=== PATIENT | female | born 1990 | race African-American/Black ===

== ENCOUNTER 2021-11-24 21:19 | Observation (INO) | payer MEDICAID ==
[~2021-11-24] VITALS: Ht 167.6 cm; Wt 99.8 kg
[~2021-11-24 21:19] MED LIST: ALBU4TAB6 INH; AMOX-424 MT; ARIP30TA2 PO; TRAZ300T11 PO
[2021-11-24] MEDS ORDERED: LACTATED RINGERS 1,000 ML IV NR ×2 (23:15)
[2021-11-24 23:33] LABS: CLARITY URINE CLEAR (CLEAR); COLOR URINE YELLOW (YELLOW); KETONES URINE NEGATIVE (NEGATIVE); LEUKOCYTE ESTERASE URINE NEGATIVE (NEGATIVE); NITRITE URINE NEGATIVE (NEGATIVE); OCCULT BLOOD URINE NEGATIVE (NEGATIVE); PH URINE 6.5 (4.5-8.0); PROTEIN URINE NEGATIVE (NEGATIVE); SPECIFIC GRAVITY URINE 1.004 (1.005-1.030); UROBILINOGEN URINE 0.2 E.U./dL (0.2-1.0)
[2021-11-24 23:36] LABS: BASOPHILS % 0.2 % (0.0-2.0); EOSINOPHILS % 1.2 % (0.0-5.0); HEMATOCRIT. 30.6 % (36.0-48.0); HEMOGLOBIN. 10.2 g/dL (12.0-16.0); LYMPHOCYTES % 25.4 % (20.0-50.0); MEAN CORPUSCULAR HEMOGLOBIN 29.4 pg (28.0-32.0); MEAN CORPUSCULAR VOLUME 88.1 fL (81.0-99.0); MEAN PLATELET VOLUME 9.1 fl (7.4-10.4); MONOCYTES % 5.8 % (2.0-8.0); NEUTROPHILS % 67.4 % (40.0-76.0); PLATELET 256 x1000/uL (130-400); RED BLOOD CELL COUNT 3.47 mill/uL (4.2-5.4); RED CELL DISTRIBUTION WIDTH 13.6 % (11.6-14.6)
[2021-11-24 23:42] LABS: CHLORIDE 104 mEq/L (98-107)
[2021-11-24 23:43] LABS: D-DIMER 0.37 mg/L FEU (<0.50); PARTIAL THROMBOPLASTIN TIME 29.8 sec (23.4-31.0); PROTHROMBIN TIME 10.5 sec (9.6-11.0)
[2021-11-24 23:51] LABS: *AMPHETAMINES SCREEN URINE NEGATIVE (NEGATIVE); *BARBITURATES SCREEN URINE NEGATIVE (NEGATIVE); *BENZODIAZEPINES SCREEN URINE NEGATIVE (NEGATIVE); *COCAINE SCREEN URINE NEGATIVE (NEGATIVE); METHADONE URINE SCREEN NEGATIVE (NEGATIVE); OPIATES URINE SCREEN NEGATIVE (NEGATIVE); PHENCYCLIDINE URINE SCREEN NEGATIVE (NEGATIVE)
[2021-11-25] MEDS ORDERED: LACTATED RINGERS 1,000 ML IV SCH
[2021-11-25 00:02] LABS: CANNABINOID URINE SCREEN PRESUMTIVE POSITIVE (NEGATIVE)
[2021-11-25] MEDS ORDERED: ACETAMINOPHEN 325MG TABLET PO ONE (01:15)
[2021-11-25] MEDS ORDERED: NITR100C PO (11:55)
[2021-12-01 04:07] LABS: CANNABINOID CONFIRMATION URINE Positive (.)
== END 2021-11-25 03:28 | disposition home or self-care (01) ==
LOC: 8 EST LDRP 21:19
PROVIDERS: ADMIT Obstetrics & Gynecology; ATTEND Obstetrics & Gynecology
DX: O26.893 Other specified pregnancy related conditions, third trimester (principal); Z20.822 Contact with and (suspected) exposure to COVID-19; R10.2 Pelvic and perineal pain; O99.891 Other specified diseases and conditions complicating pregnancy; M54.9 Dorsalgia, unspecified; O99.343 Other mental disorders complicating pregnancy, third trimester; F20.9 Schizophrenia, unspecified; O34.219 Maternal care for unspecified type scar from previous cesarean delivery; Z3A.36 36 weeks gestation of pregnancy; Z79.899 Other long term (current) drug therapy
CPT/HCPCS: 36415; 76805; 76818; 80053; 80305; 80349; 81003; 84550; 85025; 85379; 85384; 85610; 85730; 86850; 86900; 86901; 96360; G0378; 99281; 99284; G0379

== ENCOUNTER 2021-11-25 03:38 | Emergency (ER) | payer MEDICAID ==
[~2021-11-25] VITALS: Ht 162.6 cm; Wt 120.0 kg
[2021-11-25 05:02] LABS: BASOPHILS % 0.4 % (0.0-2.0); EOSINOPHILS % 2.8 % (0.0-5.0); HEMATOCRIT. 30.4 % (36.0-48.0); HEMOGLOBIN. 10.7 g/dL (12.0-16.0); LYMPHOCYTES % 29.4 % (20.0-50.0); MEAN CORPUSCULAR HEMOGLOBIN 30.7 pg (28.0-32.0); MEAN PLATELET VOLUME 8.4 fl (7.4-10.4); MONOCYTES % 9.2 % (2.0-8.0); NEUTROPHILS % 58.2 % (40.0-76.0); PLATELET 245 x1000/uL (130-400); RED CELL DISTRIBUTION WIDTH 13.7 % (11.6-14.6)
[2021-11-25 05:07] LABS: CHLORIDE 106 mEq/L (98-107)
[2021-11-25 05:17] LABS: ETHANOL BLOOD < 10 mg/dL
[2021-11-25 05:31] LABS: CLARITY URINE CLOUDY (CLEAR); COLOR URINE YELLOW (YELLOW); KETONES URINE TRACE (NEGATIVE); LEUKOCYTE ESTERASE URINE 2+ (NEGATIVE); NITRITE URINE NEGATIVE (NEGATIVE); OCCULT BLOOD URINE NEGATIVE (NEGATIVE); PROTEIN URINE TRACE (NEGATIVE); SPECIFIC GRAVITY URINE 1.033 (1.005-1.030)
[2021-11-25 05:47] LABS: *AMPHETAMINES SCREEN URINE NEGATIVE (NEGATIVE); *BARBITURATES SCREEN URINE NEGATIVE (NEGATIVE); *BENZODIAZEPINES SCREEN URINE NEGATIVE (NEGATIVE); *COCAINE SCREEN URINE NEGATIVE (NEGATIVE); METHADONE URINE SCREEN NEGATIVE (NEGATIVE); OPIATES URINE SCREEN NEGATIVE (NEGATIVE); PHENCYCLIDINE URINE SCREEN NEGATIVE (NEGATIVE)
[2021-11-25 06:04] LABS: CANNABINOID URINE SCREEN PRESUMTIVE POSITIVE (NEGATIVE)
[2021-11-25] MEDS ORDERED: NITR100C PO (11:55)
[2021-11-25 12:26] VITALS: BP 134/80
== END 2021-11-25 12:45 | disposition home or self-care (01) ==
LOC: ER 03:38
DX: O23.43 Unspecified infection of urinary tract in pregnancy, third trimester (principal); N39.0 Urinary tract infection, site not specified; O9A.513 Psychological abuse complicating pregnancy, third trimester; Z63.0 Problems in relationship with spouse or partner; O99.323 Drug use complicating pregnancy, third trimester; F12.10 Cannabis abuse, uncomplicated; O99.343 Other mental disorders complicating pregnancy, third trimester; F31.9 Bipolar disorder, unspecified; Z3A.34 34 weeks gestation of pregnancy; Z20.822 Contact with and (suspected) exposure to COVID-19
CPT/HCPCS: 36415; 80053; 80305; 80307; 80320; 80329; 81003; 81025; 85025; 87086; 99285; C9803; U0003; U0005; A4315; G0480

== ENCOUNTER 2021-12-06 19:11 | Observation (INO) | payer MEDICAID ==
[~2021-12-06] VITALS: Ht 162.6 cm; Wt 119.7 kg
[~2021-12-06 19:11] MED LIST changes: -ALBU4TAB6 INH; -AMOX-424 MT; -ARIP30TA2 PO; +NITR100C PO; -TRAZ300T11 PO
== END 2021-12-06 22:25 | disposition home or self-care (01) ==
LOC: 8 EST LDRP 19:11
PROVIDERS: ADMIT Obstetrics & Gynecology; ATTEND Obstetrics & Gynecology
DX: O21.2 Late vomiting of pregnancy (principal); O26.893 Other specified pregnancy related conditions, third trimester; R10.9 Unspecified abdominal pain; Z3A.39 39 weeks gestation of pregnancy
CPT/HCPCS: 59025; 76815; 76818; G0378

== ENCOUNTER 2021-12-27 00:08 | Inpatient (IN) | payer MEDICAID ==
[~2021-12-27] VITALS: Ht 162.6 cm; Wt 115.2 kg
[2021-12-27] MEDS ORDERED: ABILIFY (00:20)
[2021-12-27] MEDS ORDERED: QUETIAPINE (00:20)
[2021-12-27] MEDS ORDERED: LITHIUM (01:12)
[2021-12-27] MEDS ORDERED: MISOPROSTOL 100MCG TABLET VG SCH (03:30)
[2021-12-27] MEDS ORDERED: RHO(D) IMMUNE GLOBULIN 300 MCG/SYR IM ONE (03:30)
[2021-12-27] MEDS ORDERED: LACTATED RINGERS 1,000 ML IV SCH (03:30)
[2021-12-27] MEDS ORDERED: CARBOPROST TROMETHAMINE 250 MCG/ML AMPUL IM PRN (03:30)
[2021-12-27] MEDS ORDERED: OXYTOCIN 30 UNITS/500ML NS PMX 500 ML IV SCH (03:30)
[2021-12-27] MEDS ORDERED: METHYLERGONOVINE MALEATE 0.2 MG/ML IM PRN (03:30)
[2021-12-27] MEDS ORDERED: NALOXONE HCL 0.4 MG/ML 1ML VIAL IM PRN (03:30)
[2021-12-27] MEDS ORDERED: AMPICILLIN 2GM in NS 100ML 100 ML IV NR (04:00)
[2021-12-27 06:16] LABS: CLARITY URINE CLEAR (CLEAR); COLOR URINE YELLOW (YELLOW); KETONES URINE NEGATIVE (NEGATIVE); LEUKOCYTE ESTERASE URINE NEGATIVE (NEGATIVE); NITRITE URINE NEGATIVE (NEGATIVE); OCCULT BLOOD URINE NEGATIVE (NEGATIVE); PROTEIN URINE NEGATIVE (NEGATIVE); SPECIFIC GRAVITY URINE 1.032 (1.005-1.030); UROBILINOGEN URINE 0.2 E.U./dL (0.2-1.0)
[2021-12-27 06:29] LABS: BASOPHILS % 0.6 % (0.0-2.0); EOSINOPHILS % 2.1 % (0.0-5.0); HEMATOCRIT. 32.4 % (36.0-48.0); HEMOGLOBIN. 11.1 g/dL (12.0-16.0); MEAN CORPUSCULAR VOLUME 87.9 fL (81.0-99.0); MEAN PLATELET VOLUME 8.9 fl (7.4-10.4); MONOCYTES % 7.5 % (2.0-8.0); NEUTROPHILS % 69.8 % (40.0-76.0); PLATELET 277 x1000/uL (130-400); RED BLOOD CELL COUNT 3.69 mill/uL (4.2-5.4); RED CELL DISTRIBUTION WIDTH 13.8 % (11.6-14.6)
[2021-12-27 06:32] LABS: *AMPHETAMINES SCREEN URINE NEGATIVE (NEGATIVE); *BARBITURATES SCREEN URINE NEGATIVE (NEGATIVE); *BENZODIAZEPINES SCREEN URINE NEGATIVE (NEGATIVE); *COCAINE SCREEN URINE NEGATIVE (NEGATIVE); METHADONE URINE SCREEN NEGATIVE (NEGATIVE); OPIATES URINE SCREEN NEGATIVE (NEGATIVE); PHENCYCLIDINE URINE SCREEN NEGATIVE (NEGATIVE)
[2021-12-27] MEDS ORDERED: FENTANYL CITRATE/PF 50MCG/ML 2ML VIAL ONE (06:34)
[2021-12-27 06:35] LABS: CHLORIDE 106 mEq/L (98-107)
[2021-12-27 06:35] LABS: CANNABINOID URINE SCREEN PRESUMTIVE POSITIVE (NEGATIVE)
[2021-12-27] MEDS ORDERED: PHENYLEPHRINE HCL 10 MG/ML 1ML (IV VIAL) IV ONE (06:35)
[2021-12-27] MEDS ORDERED: ONDANSETRON HCL 4MG/2ML INJ ONE (06:35)
[2021-12-27] MEDS ORDERED: EPHEDRINE SULFATE 50MG/ML VIAL ONE (06:35)
[2021-12-27] MEDS ORDERED: OXYTOCIN 10 UNITS/ML 1ML ONE (06:35)
[2021-12-27] MEDS ORDERED: CEFAZOLIN SODIUM 1000MG/VIAL ONE (06:35)
[2021-12-27 06:40] LABS: INR 0.9; PARTIAL THROMBOPLASTIN TIME 30.4 sec (23.4-31.0)
[2021-12-27] MEDS ORDERED: MIDAZOLAM HCL 2 MG/2 ML VIAL ONE ×3 (06:41→07:36)
[2021-12-27 07:10] LABS: HEPATITIS B SURFACE ANTIGEN NEGATIVE
[2021-12-27] MEDS ORDERED: LIDOCAINE HCL 1% 20ML VIAL (Pyxis) INJ ONE (07:36)
[2021-12-27] MEDS ORDERED: BUPIVACAINE HCL/DEXTROSE/PF 0.75% 2ML AMP INJ ONE (07:36)
[2021-12-27] MEDS ORDERED: DIPHENHYDRAMINE 50MG/ML VIAL ONE (07:41)
[2021-12-27] MEDS ORDERED: KETOROLAC 60MG/2ML VIAL IM ONE (07:46)
[2021-12-27] MEDS ORDERED: KETOROLAC 30MG/ML VIAL IV SCH (08:00)
[2021-12-27] MEDS ORDERED: DIPHENHYDRAMINE 50MG/ML VIAL IV PRN (08:00)
[2021-12-27] MEDS ORDERED: NALOXONE HCL 0.4 MG/ML 1ML VIAL IV PRN (08:00)
[2021-12-27] MEDS ORDERED: BUTORPHANOL TARTRATE 2 MG/ML VIAL IV PRN (08:00)
[2021-12-27] MEDS ORDERED: IBUPROFEN 400MG TABLET PO PRN (08:30)
[2021-12-27] MEDS ORDERED: BISACODYL 10MG SUPP PR PRN (08:30)
[2021-12-27] MEDS ORDERED: HYDROMORPHONE HCL/PF 2MG/ML CPJ IM PRN (08:30)
[2021-12-27] MEDS ORDERED: RHO(D) IMMUNE GLOBULIN 300 MCG/SYR IM PRN (08:30)
[2021-12-27] MEDS ORDERED: NALOXONE HCL 0.4MG/ML VIAL IV PRN (09:30)
[2021-12-27] MEDS ORDERED: AMPICILLIN 1,000 MG in SODIUM CHLORIDE 0.9% 50 ML IV SCH (10:00)
[2021-12-27 11:55] VITALS: BP 103/63
[2021-12-27 16:00] VITALS: BP 113/64
[2021-12-27] MEDS: IBUPROFEN 800MG TABLET PO PRN ×2 (16:04→22:54)
[2021-12-27] MEDS: OLANZAPINE 5MG TABLET PO SCH (19:42)
[2021-12-27 22:00] VITALS: BP 117/64
[2021-12-28 05:16] VITALS: BP 124/65
[2021-12-28 07:21] LABS: BASOPHILS % 0.1 % (0.0-2.0); EOSINOPHILS % 2.3 % (0.0-5.0); HEMATOCRIT. 32.1 % (36.0-48.0); HEMOGLOBIN. 10.8 g/dL (12.0-16.0); LYMPHOCYTES % 21.7 % (20.0-50.0); MEAN CORPUSCULAR HEMOGLOBIN 29.9 pg (28.0-32.0); MEAN CORPUSCULAR VOLUME 88.8 fL (81.0-99.0); MEAN PLATELET VOLUME 9.1 fl (7.4-10.4); MONOCYTES % 7.9 % (2.0-8.0); PLATELET 280 x1000/uL (130-400); RED BLOOD CELL COUNT 3.62 mill/uL (4.2-5.4); RED CELL DISTRIBUTION WIDTH 13.8 % (11.6-14.6)
[2021-12-28 08:00] VITALS: BP 138/81
[2021-12-28] MEDS: PRENATAL VIT/FE FUMARATE/FA TABLET PO SCH ×2 (09:00→09:18)
[2021-12-28] MEDS: OLANZAPINE 5MG TABLET PO SCH (09:18)
[2021-12-28] MEDS: FERROUS SULFATE 325MG TABLET PO SCH ×2 (09:18→12:30)
[2021-12-28 12:24] VITALS: BP_SYST 16
[2021-12-28] MEDS: IBUPROFEN 800MG TABLET PO PRN ×2 (15:09→20:55)
[2021-12-28 16:19] VITALS: BP 132/81
[2021-12-28] MEDS: ARIPIPRAZOLE 5MG TABLET PO SCH (18:03)
[2021-12-28 19:15] VITALS: BP 119/68
[2021-12-28] MEDS: LITHIUM CARBONATE 150 MG CAPSULE PO SCH (20:54)
[2021-12-28] MEDS: QUETIAPINE FUMARATE 50MG TABLET PO SCH (20:55)
[2021-12-29 03:00] VITALS: BP 125/62
[2021-12-29] MEDS: IBUPROFEN 800MG TABLET PO PRN ×4 (03:00→20:45)
[2021-12-29 08:00] VITALS: BP 138/82
[2021-12-29] MEDS: FERROUS SULFATE 325MG TABLET PO SCH ×3 (08:32→17:30)
[2021-12-29] MEDS: PRENATAL VIT/FE FUMARATE/FA TABLET PO SCH (08:33)
[2021-12-29] MEDS: ARIPIPRAZOLE 5MG TABLET PO SCH (08:33)
[2021-12-29] MEDS: QUETIAPINE FUMARATE 50MG TABLET PO SCH ×2 (10:05→20:44)
[2021-12-29 16:00] VITALS: BP 103/56
[2021-12-29 20:00] VITALS: BP 126/86
[2021-12-29] MEDS: LITHIUM CARBONATE 150 MG CAPSULE PO SCH (20:44)
[2021-12-30] MEDS: IBUPROFEN 800MG TABLET PO PRN ×2 (01:50→08:40)
[2021-12-30 03:51] VITALS: BP 117/86
[2021-12-30] MEDS ORDERED: ABIL5 PO (07:45)
[2021-12-30] MEDS ORDERED: QUET50TA PO (07:45)
[2021-12-30] MEDS ORDERED: FERR-63 PO (07:45)
[2021-12-30] MEDS ORDERED: IBUP-2030 PO (07:45)
[2021-12-30] MEDS ORDERED: LITH150C PO (07:45)
[2021-12-30 08:00] VITALS: BP 130/94
[2021-12-30] MEDS: FERROUS SULFATE 325MG TABLET PO SCH (08:39)
[2021-12-30] MEDS: PRENATAL VIT/FE FUMARATE/FA TABLET PO SCH (08:39)
[2021-12-30] MEDS: ARIPIPRAZOLE 5MG TABLET PO SCH (08:39)
[2021-12-30 08:40] VITALS: BP 117/86
[2021-12-30] MEDS: QUETIAPINE FUMARATE 50MG TABLET PO SCH (08:40)
[2022-01-03 05:12] LABS: CANNABINOID CONFIRMATION URINE Positive (.)
== END 2021-12-30 10:00 | disposition home or self-care (01) | DRG 540 ==
LOC: 8 EST LDRP 00:08 → OBSVTOIN 00:08 → 8EST 11:12
PROVIDERS: ADMIT Obstetrics & Gynecology; ATTEND Obstetrics & Gynecology
PROC: 10D00Z1 Extraction of Products of Conception, Low, Open Approach (ICD-10-PCS; principal; 2021-12-27)
DX: O41.03X0 Oligohydramnios, third trimester, not applicable or unspecified (principal); O60.14X0 Preterm labor third trimester with preterm delivery third trimester, not applicable or unspecified; O99.324 Drug use complicating childbirth; O99.214 Obesity complicating childbirth; Z20.822 Contact with and (suspected) exposure to COVID-19; O34.211 Maternal care for low transverse scar from previous cesarean delivery; O99.02 Anemia complicating childbirth; O99.892 Other specified diseases and conditions complicating childbirth; N20.0 Calculus of kidney; Z37.0 Single live birth; Z3A.35 35 weeks gestation of pregnancy; O99.344 Other mental disorders complicating childbirth; O99.52 Diseases of the respiratory system complicating childbirth; J45.909 Unspecified asthma, uncomplicated; F12.10 Cannabis abuse, uncomplicated; F31.9 Bipolar disorder, unspecified; Z87.442 Personal history of urinary calculi
CPT/HCPCS: 36415; 76805; 76818; 80053; 80305; 80349; 81003; 85025; 86592; 86703; 86762; 86850; 86900; 87340; 87426; 88307; 99281; J0290; J0690; J1200; J1885; J2250; J2370; J2405; J3010; J3490; J7120; A4315; J2590

== ENCOUNTER 2022-02-16 21:33 | Emergency (ER) | payer MEDICAID ==
[~2022-02-16] VITALS: Ht 162.6 cm; Wt 94.0 kg
[~2022-02-16 21:33] MED LIST changes: +ABIL5 PO; +ABILIFY; +FERR-63 PO; +IBUP-2030 PO; +LITH150C PO; +LITHIUM; -NITR100C PO; +QUET50TA PO; +QUETIAPINE
[2022-02-17] MEDS ORDERED: IBUP-2029 MT (03:51)
[2022-02-17] MEDS ORDERED: IBUPROFEN 400MG TABLET PO ONE (04:00)
[2022-02-17 04:19] VITALS: BP 101/78
== END 2022-02-17 04:10 | disposition home or self-care (01) ==
LOC: ER 21:33
DX: S70.12XA Contusion of left thigh, initial encounter (principal); V18.0XXA Pedal cycle driver injured in noncollision transport accident in nontraffic accident, initial encounter; R03.0 Elevated blood-pressure reading, without diagnosis of hypertension; Y93.55 Activity, bike riding; Y92.488 Other paved roadways as the place of occurrence of the external cause; J45.909 Unspecified asthma, uncomplicated; F31.9 Bipolar disorder, unspecified
CPT/HCPCS: 81025; 99283

== ENCOUNTER 2024-08-22 13:23 | Emergency (ER) | payer MEDICAID, OTHER ==
[~2024-08-22] VITALS: Ht 170.2 cm; Wt 94.0 kg
[~2024-08-22 13:23] MED LIST changes: +IBUP-2029 MT
[2024-08-22 13:29] VITALS: O2SAT 99
[2024-08-22 13:50] VITALS: TEMP 37.2
[2024-08-22 14:08] LABS: BASOPHILS % 0.5 % (0.0-2.0); EOSINOPHILS % 2.3 % (0.0-5.0); HEMATOCRIT. 34.2 % (36.0-48.0); HEMOGLOBIN. 11.2 g/dL (12.0-16.0); LYMPHOCYTES % 30.6 % (20.0-50.0); MEAN CORPUSCULAR HEMOGLOBIN 27.7 pg (28.0-32.0); MEAN CORPUSCULAR HGB CONC 32.7 g/dL (31.0-37.0); MEAN CORPUSCULAR VOLUME 84.6 fL (81.0-99.0); MEAN PLATELET VOLUME 8.3 fl (7.4-10.4); MONOCYTES % 9.9 % (2.0-8.0); NEUTROPHILS % 56.7 % (40.0-76.0); PLATELET 301 x1000/uL (130-400); RED BLOOD CELL COUNT 4.05 mill/uL (4.2-5.4); RED CELL DISTRIBUTION WIDTH 15.2 % (11.6-14.6); WHITE BLOOD COUNT 6.1 x1000/uL (4.5-11.0)
[2024-08-22 14:15] LABS: CARBON DIOXIDE 26 mEq/L (21-32); CHLORIDE 103 mEq/L (98-107); POTASSIUM 3.8 mEq/L (3.5-5.1); SODIUM 136 mEq/L (136-145)
[2024-08-22 14:17] LABS: PROTHROMBIN TIME 11.1 sec (9.6-11.0)
[2024-08-22 14:21] LABS: CREATININE 0.8 mg/dL (0.6-1.0); GLUCOSE 110 mg/dL (70-105); UREA NITROGEN BLOOD 6 mg/dL (9-23)
[2024-08-22 14:22] LABS: ALANINE AMINOTRANSFERASE 9 IU/L (10-49); ALBUMIN 3.7 g/dL (3.2-4.8); ASPARTATE AMINOTRANSFERASE 12 IU/L (<34)
[2024-08-22 14:23] LABS: BILIRUBIN DIRECT 0.1 mg/dL (<=3.0); BILIRUBIN TOTAL 0.3 mg/dL (0.1-1.0); CREATINE KINASE 55 IU/L (34-145)
[2024-08-22 14:25] LABS: TROPONIN I HIGH SENSITIVITY < 4 ng/L (3.0-34)
[2024-08-22 14:36] LABS: HCG SCREEN NEGATIVE
[2024-08-22 18:40] VITALS: BP 124/75; PULSE 97; RESP 22; O2SAT 100
== END 2024-08-22 18:56 | disposition short-term general hospital (02) ==
LOC: ER 13:23 → CANBEDREQ 17:41 → ER 18:56
DX: G93.40 Encephalopathy, unspecified (principal); E11.9 Type 2 diabetes mellitus without complications; F20.9 Schizophrenia, unspecified; F31.9 Bipolar disorder, unspecified; I11.9 Hypertensive heart disease without heart failure; J45.909 Unspecified asthma, uncomplicated; Z79.899 Other long term (current) drug therapy; Z87.442 Personal history of urinary calculi
CPT/HCPCS: 80076; 80048; 82550; 84703; 83605; 83735; 85025; 85610; 87040; 84484; 36415; 84145; 71045; 70450; 93005; 99291; Z7610